=== PATIENT | female | born 1985 | race Caucasian/White ===

== ENCOUNTER 2016-09-29 18:53 | Emergency (ER) | payer OTHER ==
--- NOTE | 2016-09-29 19:38 | EDPHY ---
H & P Time Seen by Provider: 09/29/16 19:19 HPI/ROS: CHIEF COMPLAINT: Dog bite right leg HISTORY OF PRESENT ILLNESS: 31-year-old female presents with a dog bite on her right leg. She was running with headphones on just prior to arrival when a dog ran up and bit her on the back of her leg. She pushed the dog away and then the dog bit her again. ROS: No numbness, weakness, excessive bleeding, syncopal episode, other injury. Past Medical/Surgical History: Denies Smoking Status: Never smoked Physical Exam: Alert and oriented x3, no acute distress. Extremities: right lower extremity-4 cm laceration on the medial aspect of the lower thigh; just posterior to this large laceration there are multiple small abrasions and a 2 cm laceration; hip and knee range of motion without pain Neuro: Motor and sensory intact Vascular: Capillary refill brisk distally. Constitutional: Initial Vital Signs Temperature (C) 36.7 C 09/29/16 18:58 Heart Rate 97 09/29/16 18:58 Respiratory Rate 20 09/29/16 18:58 Blood Pressure 126/90 H 09/29/16 18:58 O2 Sat (%) 99 09/29/16 18:58 O2 Delivery Mode Room Air Allergies/Adverse Reactions: bacitracin [From Neosporin ([id number])] Allergy (Verified 09/29/16 18:58) neomycin [From Neosporin ([id number])] Allergy (Verified 09/29/16 18:58) polymyxin B [From Neosporin ([id number]-[id number])] Allergy (Verified 09/29/16 18:58) Home Medications: Medication Instructions Recorded Amoxicillin/Clavulanate Pot 875 mg PO BID #10 tab 09/29/16 [Augmentin 875 MG TAB (RX)] Iud 09/29/16 Medical Decision Making Procedures: Procedure: Laceration repair. The 4cm laceration on the thigh was anesthetized using lidocaine. The wound was irrigated, draped and explored to its base with a gloved finger. There were no deep structures involved. No foreign body palpable. The wound was repaired with 5 0 nylon . The wound repair was simple. Procedure: Laceration repair. The 2cm laceration on the location was anesthetized using lidocaine. The wound was irrigated, draped and explored to its base with a gloved finger. There were no deep structures involved. No foreign body palpable. The wound was repaired with 5-0 Nylon. The wound repair was simple. - Data Points Medications Given: Discontinued Medications Amoxicillin/Clavulanate Potassium (Augmentin 875mg) 875 mg PO EDNOW ONE PRN Reason: Protocol Stop: 09/29/16 20:08 Last Admin: 09/29/16 20:22 Dose: 875 mg Diphtheria/Tetanus/Acell Pertussis (Boostrix) 0.5 ml IM .ONCE ONE Stop: 09/29/16 20:24 Last Admin: 09/29/16 20:28 Dose: 0.5 ml Departure - Departure Disposition: Home, Routine, Self-Care Clinical Impression: Laceration Dog bite Qualifiers: Encounter type: initial encounter Qualified Code(s): W54.0XXA - Bitten by dog, initial encounter Condition: Good Instructions: Animal Bite (ED), Laceration (ED) Additional Instructions: Return for suture removal in 10 days. Referrals: Latisha Hoang MD [Doctor of Osteopathy] - Follow Up Only If Needed Prescriptions: Amoxicillin/Clavulanate Pot [Augmentin 875 MG TAB (RX)] 875 mg PO BID #10 tab
[2016-09-29] MEDS ORDERED: AMOXICILLIN/CLAVULANATE POT 875/125 MG TAB PO ONE (20:07)
[2016-09-29] MEDS ORDERED: TDAP ADULT 0.5 ML INJ (BOOSTRIX) IM ONE (20:23)
[2016-09-29 20:51] VITALS: BP 123/77; PULSE 83; RESP 18; TEMP 99; O2SAT 94
== END 2016-09-29 20:51 | disposition home or self-care (01) ==
PROC: 0HQHXZZ Repair Right Upper Leg Skin, External Approach (ICD-10-PCS; principal; 2016-09-29)
DX: S71.111A Laceration without foreign body, right thigh, initial encounter (principal); S81.011A Laceration without foreign body, right knee, initial encounter; Z23 Encounter for immunization; W54.0XXA Bitten by dog, initial encounter; Y93.02 Activity, running

== ENCOUNTER 2018-07-14 12:11 | Inpatient (IN) | payer OTHER ==
--- NOTE | 2018-07-14 13:49 | EDPHY ---
H & P Stated Complaint: RLQ pain since yesterday, increasing, distention Time Seen by Provider: 07/14/18 13:48 HPI/ROS: CHIEF COMPLAINT: Right lower quadrant abdominal pain HISTORY OF PRESENT ILLNESS: 32-year-old female with no history of abdominal surgery via private vehicle complaining of right lower quadrant abdominal pain for the past 24 hr. No fever no chills no nausea no vomiting. No urinary abnormality. Last oral intake 10:00 a.m. consisting of piece of toast REVIEW OF SYSTEMS: 10 systems reviewed and negative with the exception of the elements mentioned in the history of present illness PAST MEDICAL & SURGICAL HISTORY: No pertinent medical or surgical history SOCIAL HISTORY: Nonsmoker PHYSICAL EXAM (Prior to examination, patient consented to physical exam, hands were washed and my usual and customary physical exam procedures followed) 1) GENERAL: Well-developed, well-nourished, alert and oriented. Appears to be in no acute distress. 2) HEAD: Normocephalic, atraumatic 3) HEENT: Pupils equal, round, reactive to light bilaterally. Sclera anicteric. Nasopharynx, oropharynx, clear, no lesions. Moist Mucous membranes. 4) NECK: Full range of motion, no meningeal signs. 5) LUNGS: Clear auscultation bilaterally, no wheezes, no rhonchi, no retractions. 6) HEART: Regular rate and rhythm, no murmur, no heave, no gallop. 7) ABDOMEN: No guarding, tender to palpation right lower quadrant, negative Hernandez's, negative Rovsing's, negative peritoneal sign, 8) MUSCULOSKELETAL: Moving all extremities, no focal areas of tenderness, no obvious trauma. No peripheral edema or discoloration. 9) BACK: No CVA tenderness, no midline vertebral tenderness, no fluctuance, no step-off, no obvious trauma, no visual or palpable abnormality. 10) SKIN: No rash, no petechiae. 11) Psychiatric: Patient is oriented X 3, there is no agitation. DIFFERENTIAL DIAGNOSIS: My differential diagnosis includes, but is not limited to, acute appendicitis, acute cholecystitis, bowel obstruction, acute pancreatitis, ovarian torsion, ectopic , gastritis and urinary tract infection. The patient understands that this diagnosis is provisional and can never be 100% accurate. This is a partial list of diagnoses considered. These considerations are based on history, physical exam, past history and reassessment. - Personal History LMP (Females 10-55): IUD In Place Current Tetanus/Diphtheria Vaccine: Yes - Medical/Surgical History Hx Asthma: No Hx Chronic Respiratory Disease: No Hx Diabetes: No Hx Cardiac Disease: No Hx Renal Disease: No Hx Cirrhosis: No Hx Alcoholism: No Hx HIV/AIDS: No Hx Splenectomy or Spleen Trauma: No Other PMH: l acl - Social History Smoking Status: Never smoked Constitutional: Initial Vital Signs Temperature (C) 37.2 C 07/14/18 12:29 Heart Rate 90 07/14/18 12:29 Respiratory Rate 16 07/14/18 12:29 Blood Pressure 119/79 07/14/18 12:29 O2 Sat (%) 94 07/14/18 12:29 O2 Delivery Mode Room Air Allergies/Adverse Reactions: bacitracin [From Neosporin ([id number])] Allergy (Verified 07/14/18 15:20) Rash neomycin [From Neosporin ([id number]-[id number])] Allergy (Verified 07/14/18 15:20) Rash polymyxin B [From Neosporin (yos-pke-jrdfm)] Allergy (Verified 07/14/18 15:20) Rash Home Medications: Medication Instructions Recorded Cholecalciferol Vit D3 [Vitamin D3 5,000 units PO DAILY 07/14/18 (*)] Ferrous Sulfate [Ferrous Sulf 325 325 mg PO DAILY 07/14/18 MG (*)] Herbals/Supplements -Info Only 1 ea PO DAILY 07/14/18 Medical Decision Making - Diagnostics Imaging Results: Imaging Impressions Abdomen Ultrasound 07/14/18 14:05 Impression: Appendicitis. Possibly perforated. Findings discussed with Emergency Department physician care assistant, Melissa Geller on 07/14/2018, 14:59. Images reviewed myself ED Course/Re-evaluation: 2:06 p.m.: Will obtain diagnostic studies including pelvic and abdominal ultrasonography and blood work. Patient remains NPO since 10:00 a.m. Today. She is focally tender to palpation at McBurney's point. Care of patient under supervision of secondary supervising physician Dr Nicole with whom I discussed case. 3:02 p.m.: Patient's ultrasound is positive for appendicitis. I reviewed the results with the radiologist and reviewed the images myself. She remains NPO since 10:00 a.m. today. General surgeon on-call has been paged. Antibiotics will be administered. 3:06 p.m.: Consultation with Dr. Duglas Daniels who will evaluate patient in the ER. - Data Points Laboratory Results: Laboratory Results 07/14/18 14:00 07/14/18 14:00 07/14/18 07/14/18 07/14/18 14:14 14:00 14:00 WBC RBC Hgb Hct MCV MCH MCHC RDW Plt Count MPV Neut % (Auto) Lymph % (Auto) Harmon % (Auto) Eos % (Auto) Baso % (Auto) Nucleat RBC Rel Count Absolute Neuts (auto) Absolute Lymphs (auto) Absolute Monos (auto) Absolute Eos (auto) Absolute Basos (auto) Absolute Nucleated RBC Immature Gran % Immature Gran # Sodium 136 mEq/L mEq/L (135-145) Potassium 3.9 mEq/L mEq/L (3.5-5.2) Chloride 102 mEq/L mEq/L (97-110) Carbon Dioxide 23 mEq/l mEq/l (22-31) Anion Gap 11 mEq/L mEq/L (6-14) BUN 10 mg/dL mg/dL (7-23) Creatinine 0.8 mg/dL mg/dL (0.6-1.0) Estimated GFR > 60 Glucose 91 mg/dL mg/dL (70-100) Calcium 10.4 mg/dL mg/dL (8.5-10.4) Total Bilirubin 0.7 mg/dL mg/dL (0.1-1.4) Conjugated Bilirubin 0.3 mg/dL mg/dL (0.0-0.5) Unconjugated Bilirubin 0.4 mg/dL mg/dL (0.0-1.1) AST 21 IU/L IU/L (14-46) ALT 25 IU/L IU/L (9-52) Alkaline Phosphatase 66 IU/L IU/L (38-126) Total Protein 8.4 g/dL H g/dL (6.3-8.2) Albumin 5.0 g/dL g/dL (3.5-5.0) Lipase 111 IU/L IU/L (23-300) Beta HCG, Qual NEGATIVE Urine Color PALE YELLOW Urine Appearance CLEAR Urine pH 7.0 (5.0-7.5) Ur Specific [place] 1.005 (1.002-1.030) Urine Protein NEGATIVE (NEGATIVE) Urine Ketones NEGATIVE (NEGATIVE) Urine Blood NEGATIVE (NEGATIVE) Urine Nitrate NEGATIVE (NEGATIVE) Urine Bilirubin NEGATIVE (NEGATIVE) Urine Urobilinogen NEGATIVE EU EU (0.2-1.0) Ur Leukocyte Esterase NEGATIVE (NEGATIVE) Urine RBC 1-3 /hpf /hpf (0-3) Urine WBC 1-3 /hpf /hpf (0-3) Ur Epithelial Cells TRACE /lpf /lpf (NONE-1+) Urine Bacteria TRACE /hpf H /hpf (NONE SEEN) Urine Mucus TRACE /lpf /lpf (NONE-1+) Urine Glucose NEGATIVE (NEGATIVE) 07/14/18 14:00 WBC 12.47 10^3/uL H 10^3/uL (3.80-9.50) RBC 5.00 10^6/uL 10^6/uL (4.18-5.33) Hgb 15.7 g/dL g/dL (12.6-16.3) Hct 46.8 % % (38.0-47.0) MCV 93.6 fL fL (81.5-99.8) MCH 31.4 pg pg (27.9-34.1) MCHC 33.5 g/dL g/dL (32.4-36.7) RDW 12.4 % % (11.5-15.2) Plt Count 272 10^3/uL 10^3/uL (150-400) MPV 10.2 fL fL (8.7-11.7) Neut % (Auto) 75.2 % H % (39.3-74.2) Lymph % (Auto) 15.7 % % (15.0-45.0) Harmon % (Auto) 7.5 % % (4.5-13.0) Eos % (Auto) 1.0 % % (0.6-7.6) Baso % (Auto) 0.3 % % (0.3-1.7) Nucleat RBC Rel Count 0.0 % % (0.0-0.2) Absolute Neuts (auto) 9.37 10^3/uL H 10^3/uL (1.70-6.50) Absolute Lymphs (auto) 1.96 10^3/uL 10^3/uL (1.00-3.00) Absolute Monos (auto) 0.94 10^3/uL H 10^3/uL (0.30-0.80) Absolute Eos (auto) 0.12 10^3/uL 10^3/uL (0.03-0.40) Absolute Basos (auto) 0.04 10^3/uL 10^3/uL (0.02-0.10) Absolute Nucleated RBC 0.00 10^3/uL 10^3/uL (0-0.01) Immature Gran % 0.3 % % (0.0-1.1) Immature Gran # 0.04 10^3/uL 10^3/uL (0.00-0.10) Sodium Potassium Chloride Carbon Dioxide Anion Gap BUN Creatinine Estimated GFR Glucose Calcium Total Bilirubin Conjugated Bilirubin Unconjugated Bilirubin AST ALT Alkaline Phosphatase Total Protein Albumin Lipase Beta HCG, Qual Urine Color Urine Appearance Urine pH Ur Specific [place] Urine Protein Urine Ketones Urine Blood Urine Nitrate Urine Bilirubin Urine Urobilinogen Ur Leukocyte Esterase Urine RBC Urine WBC Ur Epithelial Cells Urine Bacteria Urine Mucus Urine Glucose Medications Given: Ceftriaxone Sodium/Dextrose (Rocephin 1 Gm (Premix)) 50 mls @ 100 mls/hr IV EDNOW ONE PRN Reason: Protocol Stop: 07/14/18 15:34 Last Admin: 07/14/18 15:27 Dose: 50 mls Discontinued Medications Sodium Chloride (Ns) 1,000 mls @ 0 mls/hr IV EDNOW ONE; Wide Open PRN Reason: Protocol Stop: 07/14/18 14:05 Last Admin: 07/14/18 14:14 Dose: 1,000 mls Sodium Chloride (Ns) 1,000 mls @ 0 mls/hr IV ONCE ONE PRN Reason: Wide Open Stop: 07/14/18 15:06 Last Admin: 07/14/18 15:28 Dose: 1,000 mls Departure - Departure Disposition: [facility] Clinical Impression: Acute appendicitis Qualifiers: Acute appendicitis type: with localized peritonitis Appendicitis gangrene presence: without gangrene Appendicitis perforation presence: unspecified whether perforation present Appendicitis abscess presence: without abscess Qualified Code(s): K35.30 - Acute appendicitis with localized peritonitis, without perforation or gangrene Condition: Fair
[2018-07-14] MEDS ORDERED: NS 1,000 ML IV ONE ×2 (14:04→15:05)
[2018-07-14 14:20] LABS: PLATELET COUNT 272 10^3/uL (150-400)
[2018-07-14] MEDS ORDERED: fentaNYL 100 MCG/2 ML INJ ONE ×4 (16:21→18:34)
--- NOTE | 2018-07-14 16:21 | GHP ---
[f rep st] PREOP HISTORY AND PHYSICAL DATE OF ADMISSION: 07/14/2018 ADMITTING DIAGNOSIS: Acute appendicitis. HISTORY: The patient is a 32-year-old female who woke up yesterday morning and "felt dehydrated" which she attributed it to a large workout she had done the day before. She tried to eat and had the onset of a sharp cramping pain in the lower abdomen. She had diarrhea with a small amount of stool, but no change in her symptoms. Her appetite was off throughout the day. She slept poorly, woke up this morning, tried a small amount of toast at 9:45 a.m., and that did not settle in her stomach. She had some water at noon and presented to the emergency department. An ultrasound shows a thickened appendiceal wall with periappendiceal edema. There is no history of recent upper respiratory tract infection or diarrhea in the last 2 weeks. She did travel to [facility] in the last 6 months. There is no history of antibiotic use in the last 6 months. She does not have any history of prior abdominal surgery, prior similar symptoms, or inflammatory bowel disease. SOCIAL HISTORY: She does not smoke. She drinks 1-2 glasses of wine per week. She has a rash to topical Neosporin, but can use Polysporin antibiotics. MEDICATIONS: She is not taking any medications. PAST SURGICAL HISTORY: Only surgeries have been a left ACL repair and a placement of a copper IUD. PAST MEDICAL HISTORY: There is no history of rheumatic fever, tuberculosis, hepatitis, or transfusions. REVIEW OF SYSTEMS: She wears lenses for visual correction. There are no limits on her activities. No history of steroid use in the last 6 months. Review of systems otherwise quite negative. FAMILY HISTORY: Her mother is 57, alive and well. Her father is 63 and alive and well. The patient is the oldest of 3 siblings. She was followed in by a sister who is 30 and another sister who is 23. Both her sisters are healthy. PHYSICAL EXAMINATION: GENERAL: She is awake and alert in mild distress. VITAL SIGNS: Her blood pressure is 123/97, heart rate is 85, respirations are 16, room air saturation is 99%. SKULL: Normocephalic and atraumatic. NEUROLOGIC: There are no focal lateralizing neurologic findings. NECK: There is no thyroid enlargement or bruits detected. LYMPHATICS: There is no cervical, supraclavicular, axillary, or inguinal lymphadenopathy. BACK: There is a small sebaceous cyst medial to her left scapula, which is not infected at this time. LUNGS: Clear to auscultation. CARDIAC: Shows S1, S2 to be normal. ABDOMEN: Tender with cough over McBurney point at a 3 on a scale of 1 to 10. Psoas and obturator signs are negative. Bowel sounds are hypoactive. To palpation, left upper quadrant is 1, left mid abdomen is 1, left lower quadrant is 1, epigastrium is 1, periumbilical area is 1, suprapubic area is 2, right upper quadrant is 2, right mid abdomen is 4, right lower quadrant is 5. LABORATORIES: Reveal a white count of 12.47 with 75% neutrophils. Hematocrit is 46. Beta hCG is negative. Potassium is 3.9, sodium is 136. Creatinine is 0.8 and BUN is 10. Urine shows 1-3 red cells, 1-3 white cells per high-power field. Specific gravity is 1.005. She has received Rocephin and Flagyl. Her hydration is continuing. I recommend a laparoscopic, possibly open appendectomy. The patient understands the planned procedure and wishes to proceed as outlined. /[id number]/MODL MTDD
[2018-07-14] MEDS ORDERED: MIDAZOLAM 2 MG/2 ML VIAL ONE (16:26)
[2018-07-14] MEDS ORDERED: PROPOFOL 200 MG/20 ML VIAL ONE ×2 (16:34)
[2018-07-14] MEDS ORDERED: ROCURONIUM 50 MG/5 ML VIAL ONE (16:56)
[2018-07-14] MEDS ORDERED: METOCLOPRAMIDE 10 MG/2 ML VIAL ONE (16:56)
[2018-07-14] MEDS ORDERED: KETOROLAC 30 MG/1 ML SDV ONE (16:56)
[2018-07-14] MEDS ORDERED: LIDOCAINE 2% 5 ML SDV ONE (16:56)
[2018-07-14] MEDS ORDERED: SUGAMMADEX SODIUM 200 MG/2 ML VIAL IVP ONE (16:56)
[2018-07-14] MEDS ORDERED: ONDANSETRON 4 MG/2 ML VIAL ONE (16:56)
[2018-07-14] MEDS ORDERED: HEPARIN 1000 UNIT/1 ML MDV ONE ×2 (16:59→17:52)
[2018-07-14] MEDS ORDERED: ceFAZolin 1 GM/5 ML SYR ONE ×2 (17:00→17:52)
[2018-07-14] MEDS ORDERED: MEPERIDINE 25 MG/0.5 ML AMP IVP PRN (17:21)
[2018-07-14] MEDS ORDERED: DEXAMETHASONE 4 MG/ML VIAL IVP PRN (17:21)
[2018-07-14] MEDS ORDERED: LR 500 ML IV PRN (17:21)
[2018-07-14] MEDS ORDERED: ONDANSETRON 4 MG/2 ML VIAL IVP PRN ×2 (17:21→18:34)
[2018-07-14] MEDS ORDERED: DIAZEPAM 5 MG/ML 1 ML SYR IVP PRN (17:21)
[2018-07-14] MEDS ORDERED: ALBUTEROL 3 ML DEYVIAL IH PRN (17:21)
[2018-07-14] MEDS ORDERED: METOCLOPRAMIDE 10 MG/2 ML VIAL IVP PRN (17:21)
[2018-07-14] MEDS ORDERED: NALOXONE HCL 0.4 MG/ML INJ IVP PRN (17:21)
[2018-07-14] MEDS ORDERED: PROMETHAZINE HCL 25 MG/ML INJ IVP PRN (17:21)
--- NOTE | 2018-07-14 17:21 | PDANEPAE ---
ANE Past Medical History - Pulmonary History Hx Oxygen in Use at Home: No Hx Sleep Apnea: No - Endocrine History Hx Diabetes: No ANE Review of Systems Review of Systems: ANE Patient History - Allergies Allergies/Adverse Reactions: bacitracin [From Neosporin ([id number])] Allergy (Verified 07/14/18 15:20) Rash neomycin [From Neosporin ([id number]-[id number])] Allergy (Verified 07/14/18 15:20) Rash polymyxin B [From Neosporin ([id number]-xno-htjhv)] Allergy (Verified 07/14/18 15:20) Rash - Home Medications Home Medications: Cholecalciferol Vit D3 [Vitamin D3 (*)] 5,000 units PO DAILY 07/14/18 [Last Taken 07/13/18] Ferrous Sulfate [Ferrous Sulf 325 MG (*)] 325 mg PO DAILY 07/14/18 [Last Taken 07/13/18] Herbals/Supplements -Info Only 1 ea PO DAILY 07/14/18 [Last Taken 07/13/18] - NPO status NPO Since - Liquids (Date): 07/14/18 NPO Since - Liquids (Time): 12:00 NPO Since - Solids (Date): 07/14/18 NPO Since - Solids (Time): 09:30 - Smoking Hx Smoking Status: Never smoked ANE Labs/Vital Signs - Labs Result Diagrams: 07/14/18 14:00 07/14/18 14:00 - Vital Signs Blood Pressure: 118/81 Heart Rate: 93 Respiratory Rate: 18 O2 Sat (%): 97 Height: 167.64 cm Weight: 65.771 kg ANE Physical Exam - Airway Neck exam: FROM Mallampati Score: Class 1 Mouth exam: normal dental/mouth exam - Pulmonary Pulmonary: no respiratory distress, no rales or rhonchi, clear to auscultation - Cardiovascular Cardiovascular: regular rate and rhythym, no murmur, rub, or gallop, tachycardia - ASA Status ASA Status: I, E ANE Anesthesia Plan Anesthesia Plan: general endotracheal anesthesia
[2018-07-14] MEDS ORDERED: MIDAZOLAM 2 MG/2 ML VIAL IVP ONE (17:23)
[2018-07-14] MEDS: fentaNYL 100 MCG/2 ML INJ IVP PRN ×2 (18:36→18:43)
[2018-07-14] MEDS ORDERED: ACETAMINOPHEN 325 MG TAB PO SCH (18:45)
[2018-07-14] MEDS ORDERED: HYDROmorphONE/DILAUDID 2 MG/ML INJ ONE (18:45)
[2018-07-14] MEDS: HYDROmorphONE/DILAUDID 2 MG/ML INJ IVP PRN ×3 (18:46→19:45)
[2018-07-14] MEDS ORDERED: ACETAMINOPHEN 500 MG TAB ONE (19:10)
[2018-07-14] MEDS: ACETAMINOPHEN 500 MG TAB PO SCH (19:15)
[2018-07-14] MEDS: HYDROmorphONE/DILAUDID 1 MG/ML INJ IVP PRN (21:00)
[2018-07-14] MEDS: NS 1,000 ML IV SCH (21:35)
[2018-07-14] MEDS: KETOROLAC 30 MG/1 ML SDV IVP SCH (23:32)
[2018-07-15] MEDS: HYDROmorphONE/DILAUDID 1 MG/ML INJ IVP PRN ×6 (00:19→19:53)
--- NOTE | 2018-07-15 02:28 | POSTOPPROG ---
Post Op Note Date of Operation: 07/15/18 Surgeon: Duglas Daniels Anesthesia: GET(General Endotracheal) Pre-op Diagnosis: acute appendicitis by ultrasound Post-op Diagnosis: Acute appendicitis with extensive scaring and periappendiceal inflamation Indication: acute appendicitis by ultrasound Procedure: laparoscopic appendectomy Findings: Acute appendicitis with extensive scaring and periappendiceal inflamation Inf/Abcess present in the surg proc area at time of surgery?: No EBL: 50-100 Complications: extraction bag developed a leak. Terminal ileal serosal injury re-enforced with 3-0 Vicryl stitches. Drains: Adolfo Lozano Specimen(s): appendix
[2018-07-15] MEDS: ACETAMINOPHEN 500 MG TAB PO SCH ×3 (03:45→19:45)
--- NOTE | 2018-07-15 06:12 | GOP ---
[f rep st] OPERATIVE REPORT DATE OF OPERATION: 07/14/2018 SURGEON: Duglas Daniels MD ANESTHESIA: General endotracheal. PREOPERATIVE DIAGNOSIS: Acute appendicitis by ultrasound. POSTOPERATIVE DIAGNOSIS: Acute appendicitis with extensive scarring periappendiceal inflammation. PROCEDURE PERFORMED: Laparoscopic appendectomy. No abscess was identified. FINDINGS: Acute appendicitis with extensive scarring periappendiceal inflammation. SPECIMENS: Appendix. ESTIMATED BLOOD LOSS: Minimal. INDICATIONS: Acute appendicitis by ultrasound. DESCRIPTION OF PROCEDURE: The patient was placed on the operating table in supine position. She had previously emptied her bladder. She was placed under general endotracheal anesthesia. A surgical time-out was carried out and agreed to by all members of the operative team. She was carefully prepped and draped. A transverse suprapubic 5 mm incision and an oblique left lower quadrant 5 mm skin incisions are both made. Dermal incision is deepened with Bovie electrocautery. A curvilinear incision was placed in her inferior umbilical fold. This incision was created sharply and deepened with Bovie electrocautery. Dissection was continued to the right and left to the midline. Bilaterally the rectus sheaths were elevated. The fascia was divided in the midline. A pursestring of #0 PDS was placed. The peritoneum was entered. An 11/12 mm Dae trocar was positioned. Intraabdominal insufflation was carried out to 15 mmHg at high flow. 5 mm ports were placed both in the left lower quadrant and the suprapubic area. Photographic documentation was undertaken to document the uterus and ovaries which were otherwise unremarkable. There was intense inflammatory mass in the right lower quadrant. The terminal ilium had to be carefully elevated off the inflammatory mass. The mass was because of the appendicitis and periappendiceal swelling. Careful and tedious dissection was carried out. Care was taken to keep the dissection on the appendiceal mass to minimize any possibility of injuring the ureter. Adhesions of the cecum to the abdominal wall were carefully taken down using Harmonic scalpel. The appendix and cecum were carefully rotated medially. A plane was developed between the appendix and the terminal ileum. The mesoappendix was carefully divided. The mass was approximately the size of a golf ball. It was carefully dissected down to a normal-sized appendix near the cecum. The specimen was carefully elevated and the appendiceal cecal junction was carefully divided using a 45 mm Endo-MADISON powered stapler. Care was taken to make sure a small cuff of cecum was included in the staple line. The specimen was placed in EndoCatch bag. It was delivered through the umbilical port. Because of the size and the induration of the appendix, it was difficult to deliver. The EndoCatch bag was opened. The appendix was carefully removed in pieces using a ring forceps. In the process of removing the specimen from the bag a rent develops in the bag itself. The specimen was totally removed. When the rent was developed a small compression occurred in the serosa of the terminal ileum. This was carefully delivered and over sewed in a transverse manner using 3 Lembert sutures of 3-0 Vicrylfor re-enforcement. This was allowed to drop back into the abdominal cavity. Irrigation was carried out with heparin and Ancef-containing irrigant throughout the case. Because this has been a procedure associated with some oozing with the dissection in spite of the use of Harmonic and because of the rent in the bag, a flat HERRERA drain has been placed in the pelvis. Note is made the small bowel was run for a distance of approximately 3 feet. There was no evidence of Meckel's diverticulum. 2 L of irrigation was used. The HERRERA drain was led out through the suprapubic port site. It was secured with a suture of 3-0 silk. Inverted simple suture of #0 PDS was placed in the midpoint of the infraumbilical midline fascial incision. After this was tied the pursestring was now tied. The subcutaneous tissue was well irrigated with heparin and Ancef-containing irrigant. The skin was closed with interrupted inverted simple sutures of #4-0 Vicryl. Mastisol and Steri-Strips were placed. A sterile dressing was placed around the drain. The patient was transferred to recovery in stable and satisfactory condition. COMPLICATIONS: 1. A rent was developed in the extraction bag causing a small amount of leakage. 2. There was a small pinch to the serosa of the terminal ileum. This was reinforced with Lembert sutures of 3-0 Vicryl. /[id number]/MODL MTDD
[2018-07-15] MEDS: KETOROLAC 30 MG/1 ML SDV IVP SCH ×3 (06:25→18:31)
[2018-07-15 07:51] LABS: PLATELET COUNT 182 10^3/uL (150-400)
[2018-07-15] MEDS: NS 1,000 ML IV SCH ×2 (08:27→21:17)
--- NOTE | 2018-07-15 16:15 | SOAPPROG ---
SOAP Progress Note Assessment/Plan: POD#1 07/15/2018 Assessment: Doing well, VSS, WBC down, Passing gas, Taking liquids, HERRERA output becoming more serous Plan: Advance diet, continue supportive care Subjective: Pain control adequate Objective: Vital Signs Temp Pulse Resp BP Pulse Ox 37.3 C 80 18 97/60 L 93 07/15/18 07:11 07/15/18 07:11 07/15/18 03:45 07/15/18 07:11 07/15/18 07:11 Laboratory Results 07/15/18 07:00 07/14/18 07/15/18 07/16/18 05:59 05:59 05:59 Intake Total 4080 350 Output Total 765 835 Balance 3394 -425 - Time Spent With Patient Time Spent With Patient: 15 - Pending Discharge Pending Discharge Within 24 Hours: No Physical Exam - Physical Exam General Appearance: WD/WN, alert, mild distress Respiratory: lungs clear, normal breath sounds Cardiac/Chest: regular rate, rhythm Abdomen: normal bowel sounds, non-tender, soft, other (HERRERA drain output sero- sanguinous) Pelvic Exam: deferred Rectal: deferred Back: Normal inspection Skin: normal color, warm/dry Extremities: normal range of motion, non-tender, normal inspection Neuro/Psych: no motor/sensory deficits, alert, normal mood/affect, oriented x 3 ICD10 Worksheet Patient Problems: Problems Problem Status Onset Acute appendicitis Acute
[2018-07-15] MEDS ORDERED: ENOXAPARIN 40 MG/0.4 ML SYR SC SCH (21:00)
--- NOTE | 2018-07-15 21:35 | PDMN ---
Medical Necessity Medical necessity: Change to inpt as of 07/15/18 @ 17:04, meets inpt criteria per MD order and [facility] [place] [facility] S-[id number], Appendectomy, without Peritonitis, by Laparoscopy. y /o admitted w/acute appendicitis w/extensive scaring and periappendiceal inflammation, underwent lap appy, during procedure extraction bag developed leak , terminal ileal serosal injury re-enforced w/3-0 Vicryl stitches. IV Dilaudid and IV Toradol for pain, IV Rocephin and IV Flagyl, est LOS>2MN for ongoing management of above.
[2018-07-16] MEDS: KETOROLAC 30 MG/1 ML SDV IVP SCH ×2 (00:15→05:48)
[2018-07-16] MEDS: HYDROmorphONE/DILAUDID 1 MG/ML INJ IVP PRN ×2 (00:29→03:20)
[2018-07-16] MEDS: ACETAMINOPHEN 500 MG TAB PO SCH ×3 (03:20→19:05)
--- NOTE | 2018-07-16 07:56 | SOAPPROG ---
SOAP Progress Note Assessment/Plan: POD#1 07/15/2018 Assessment: Doing well, VSS, WBC down, Passing gas, Taking liquids, HERRERA output becoming more serous Plan: Advance diet, continue supportive care POD#2 07/16/18 07:53 Assessment: Doing well, HERRERA serous output - removed, taking some solid food Plan: if WBC okay, then change to oral antibiotics Subjective: I had transient nausea when I awoke Objective: Vital Signs Temp Pulse Resp BP Pulse Ox 36.9 C 68 14 98/62 L 98 07/16/18 05:30 07/16/18 05:30 07/16/18 05:30 07/16/18 05:30 07/16/18 05:30 07/15/18 07/16/18 07/17/18 05:59 05:59 05:59 Intake Total 1000 Output Total 620 60 Balance 380 -60 - Time Spent With Patient Time Spent With Patient: 15 - Pending Discharge Pending Discharge Within 24 Hours: Yes Pending Discharge Date: 07/17/18 Pending Discharge Time: 11:00 Physical Exam - Physical Exam General Appearance: WD/WN, alert, no apparent distress Respiratory: lungs clear, normal breath sounds Cardiac/Chest: regular rate, rhythm Abdomen: normal bowel sounds, non-tender, soft Pelvic Exam: deferred Rectal: deferred Back: Normal inspection Skin: normal color, warm/dry Extremities: normal range of motion, non-tender Neuro/Psych: no motor/sensory deficits, alert, normal mood/affect, oriented x 3 ICD10 Worksheet Patient Problems: Problems Problem Status Onset Acute appendicitis Acute
[2018-07-16 08:11] LABS: PLATELET COUNT 185 10^3/uL (150-400)
[2018-07-16] MEDS ORDERED: HYDROmorphONE/DILAUDID 2 MG TAB PO PRN (09:08)
[2018-07-16] MEDS: IBUPROFEN 200 MG TAB PO SCH ×4 (11:18→22:59)
[2018-07-16] MEDS: AMOXICILLIN/CLAVULANATE POT 875/125 MG TAB PO SCH ×2 (11:18→21:29)
[2018-07-17] MEDS: IBUPROFEN 200 MG TAB PO SCH ×4 (03:12→15:38)
[2018-07-17] MEDS: ACETAMINOPHEN 500 MG TAB PO SCH ×2 (03:12→10:49)
[2018-07-17] MEDS: AMOXICILLIN/CLAVULANATE POT 875/125 MG TAB PO SCH (09:13)
[2018-07-17] MEDS ORDERED: PSYLLIUM METAMUCIL 1 PKT PO SCH (09:15)
--- NOTE | 2018-07-17 09:19 | SOAPPROG ---
SOAP Progress Note Assessment/Plan: POD#1 07/15/2018 Assessment: Doing well, VSS, WBC down, Passing gas, Taking liquids, HERRERA output becoming more serous Plan: Advance diet, continue supportive care POD#2 07/16/18 07:53 Assessment: Doing well, HERRERA serous output - removed, taking some solid food Plan: if WBC okay, then change to oral antibiotics 07/17/18 09:15 POD#3 07/17/18 09:15 Assessment: Doing well but has had 8 watery stools in last 24 hours. Appetite off. Plan: Check for C. Diff Start Metamucil Subjective: c/o watery diarrhea Objective: Vital Signs Temp Pulse Resp BP Pulse Ox 36.7 C 84 17 116/74 96 07/17/18 08:00 07/17/18 08:00 07/17/18 08:00 07/17/18 08:00 07/17/18 08:00 Laboratory Results 07/16/18 08:00 07/16/18 07/17/18 07/18/18 05:59 05:59 05:59 Intake Total 1000 Output Total 620 80 Balance 380 -80 - Time Spent With Patient Time Spent With Patient: 15 Physical Exam - Physical Exam General Appearance: WD/WN, alert, no apparent distress Respiratory: chest non-tender, lungs clear, normal breath sounds Cardiac/Chest: regular rate, rhythm Abdomen: normal bowel sounds, non-tender, soft, other (incisions are clean and dry) Pelvic Exam: deferred Rectal: deferred Back: Normal inspection Skin: normal color, warm/dry Lymphatic: no adenopathy Extremities: normal range of motion, non-tender, normal inspection Neuro/Psych: no motor/sensory deficits, alert, normal mood/affect, oriented x 3 ICD10 Worksheet Patient Problems: Problems Problem Status Onset Acute appendicitis Acute
[2018-07-17 15:41] VITALS: BP 115/73
--- NOTE | 2018-07-18 05:36 | GDS ---
[f rep st] DISCHARGE SUMMARY DISCHARGE DISPOSITION: Home. DISCHARGE DIAGNOSES: Acute/chronic appendicitis, mesenteric adenitis, Escherichia coli enteroaggrega tive enteritis with extensive periappendiceal induration and inflammation. PROCEDURE: Laparoscopic appendectomy. COMPLICATIONS: The EndoCatch bag did have a leak. She was irrigated with heparin and Ancef-containi ng irrigant. A drain was left in for two days and then removed. She did develop watery diarrhea aft er surgery. Testing for C difficile was negative, but did have the E coli as mentioned above. As th is is a self-limited reaction, no further treatment is necessary. Metamucil was helpful for her. At discharge, she is to go home and her mother will be with her. CONDITION: Good. There are no restrictions on her diet. Texture of diet is unrestricted. MEDICATIONS AT DISCHARGE: She will continue her home medications, which include an herbal supplement , ferrous sulfate 325 mg daily, and cholecalciferol vitamin D3 5000 units daily. Specifically for th e surgery, she will take Augmentin 875 b.i.d. for 5 days. For pain control, she will take Tylenol 10 00 mg every 8 hours and ibuprofen 200 mg every 6 hours. In addition, for breakthrough pain, she will take Dilaudid 2 mg every 4 hours. She will use Metamucil as needed. ACTIVITY: For the next 3 weeks is restricted as follows. She is to lift less than 10 pounds. She i s to shower only. She is to keep her Steri-Strips in place. She is to take a multivitamin with zinc , copper, and C. She is to watch for signs of infection for 2 weeks after the antibiotics have stopp ed, superficial space redness, warmth, tenderness, and swelling, deep space, decreased appetite, feve rs, chills, abdominal pain, and general malaise. She will follow up with Wayne Rabago, and Rose in 10-14 days for wound check and report of her pathology. HOSPITAL COURSE: The patient was admitted and had the above-mentioned surgery. Postoperatively, she had a slightly prolonged course due to abdominal discomfort and general malaise, which is resolved. She had developed the watery diarrhea and underwent evaluation as mentioned above. [facility] /[id number]/MODL
--- NOTE | 2018-07-22 09:23 | POSTANESTH ---
Post Anesthetic Evaluation Cardiovascular Status: Normal, Stable, Similar to Pre-Op Cond Respiratory Status: Normal, Stable, Similar to Pre-op Cond. Level of Consciousness/Mental Status: Moderately Sleepy Pain Control: Adequate, Prn Tx Ordered Nausea/Vomiting Control: Adequate, Prn Tx Ordered Complications Possibly Related to Anesthesia: None Noted
--- NOTE | 2018-07-27 14:55 | PQFORM ---
PHYSICIAN QUERY FORM Needs Your Response This query form is being sent to you to assure this patient record is coded properly. Please respond to the question below: BLOW TORCH BURNER QUESTION: Dear Dr. Daniels, During the surgery on this patient, the EndoCatch bag developed a rent/leak. Irrigation was carried out with heparin and Ancef-containing irrigant thoughout the case. Would this leak be considered a complication causing the enteritis? yes ___X___ no other Thank you for clarifying, MAILE Pace INSTRUCTIONS FOR RESPONSE: Answer question by clicking on the "Edit Document" button. Move cursor to area below the stars. When complete, hit "Save." Click on the "Sign" button, then click "Sign" again. Type in your PIN and hit "Enter." MTDD
== END 2018-07-17 17:30 | disposition home or self-care (01) | DRG 342 ==
LOC: FOB 20:30 → OBSVTOIN 07-15 17:04
PROVIDERS: ADMIT Surgery; ATTEND Surgery
PROC: 0DTJ4ZZ Resection of Appendix, Percutaneous Endoscopic Approach (ICD-10-PCS; principal; 2018-07-14 16:30)
DX: K35.80 Unspecified acute appendicitis (principal); K36 Other appendicitis; A04.4 Other intestinal Escherichia coli infections; I88.0 Nonspecific mesenteric lymphadenitis
CPT/HCPCS: 96365; G0378; J0696; J1170; J1650; J1885; J2250; J2405; J2704; J2765; J3010